=== PATIENT | female | born 1975 | race Caucasian/White ===

== ENCOUNTER 2017-01-27 11:40 | Inpatient (IN) ==
--- NOTE | 2017-01-26 22:03 | Discharge Summary ---
<Nancie Chen - Last Filed: 01/27/17 11:44> Date of Encounter: 01/27/17 - Discharge Diagnosis (1) Arthritis of knee, left Priority: Primary Status: Acute (2) Status post total knee replacement, left Priority: Primary Status: Acute (3) DMII (diabetes mellitus, type 2) Priority: Secondary Status: Chronic Qualifiers: Diabetes mellitus complication status: without complication Diabetes mellitus middle or intermediate school principal insulin use: unspecified middle or intermediate school principal insulin use status Qualified Code(s): E11.9 - Type 2 diabetes mellitus without complications (4) HTN (hypertension) Priority: Secondary Status: Chronic Qualifiers: Hypertension type: essential hypertension Qualified Code(s): I10 - Essential (primary) hypertension (5) Obesity Priority: Secondary Status: Acute Qualifiers: Obesity type: due to excess calories Obesity classification: unspecified obesity classification Serious obesity comorbidity presence: unspecified whether serious comorbidity present Qualified Code(s): E66.09 - Other obesity due to excess calories; Z68.36 - Body mass index (BMI) 36.0-36.9, adult; Z68.36 - Body mass index (BMI) 36.0-36.9, adult - Discharge Medications Home Medications: Aspirin Enteric Coated [Aspirin EC] 325 mg PO DAILY #21 tablet.dr 01/26/17 [Rx] OxyCODONE Immed Rel [Roxicodone 5 MG] 5 mg PO Q6HR PRN #28 tablet 01/26/17 [Rx] Cholecalciferol (Vitamin D3) [Vitamin D3] 1,000 unit PO DAILY 01/27/17 [History] LORazepam [Ativan] 0.5 mg PO QID PRN 01/27/17 [History] Levothyroxine [Synthroid] 88 mcg PO 0630 01/27/17 [History] Lisinopril [Zestril] 5 mg PO DAILY 01/27/17 [History] Magnesium Oxide [Magnesium] 250 mg PO DAILY 01/27/17 [History] Metformin HCl [Glucophage] 1,000 mg PO BID 01/27/17 [History] Mv-Mn/FA/Vit K/Lycop/Lut/Coq10 [Daily Multivitamin Capsule] 1 tab PO DAILY 01/27 [History] Venlafaxine XR (24 HR) [Effexor Xr] 37.5 mg PO DAILY 01/27/17 [History] Allergies/Adverse Reactions: 3 Allergy/AdvReac Type Severity Reaction Status Date / Time cetirizine [From Zyrtec] AdvReac Swelling Verified 01/27/17 11:55 of Lip/Tongue/Throat ciprofloxacin [From Cipro] AdvReac Hives Verified 01/27/17 11:55 clindamycin AdvReac Redness of Verified 01/27/17 11:55 Skin ibuprofen AdvReac Hives Verified 01/27/17 11:55 iodine AdvReac Redness of Verified 01/27/17 11:55 Skin nifedipine [From Procardia] AdvReac Palpitation Verified 01/27/17 11:55 s Penicillins AdvReac Hives Verified 01/27/17 11:55 Primary care physician: PCP NONE - Patient Status Disposition: Home, Self-Care Condition: Good - Discharge Instructions Follow Up With: NONE,PCP [Primary Care Provider] - - Hospital Course Hospital course: Ms. Amaya is a 41 year old female - Time Spent with Patient Total time spent providing and/or coordinating discharge services: <Aurelio Garcia - Last Filed: 01/28/17 06:52> Date of Encounter: 01/28/17 Time of Encounter: 06:51 - Discharge Diagnosis (1) Arthritis of knee, left Priority: Primary Status: Chronic (2) Status post total knee replacement, left Priority: Primary Status: Acute (3) DMII (diabetes mellitus, type 2) Priority: Secondary Status: Chronic Qualifiers: Diabetes mellitus complication status: without complication Diabetes mellitus middle or intermediate school principal insulin use: unspecified middle or intermediate school principal insulin use status Qualified Code(s): E11.9 - Type 2 diabetes mellitus without complications (4) HTN (hypertension) Priority: Secondary Status: Chronic Qualifiers: Hypertension type: essential hypertension Qualified Code(s): I10 - Essential (primary) hypertension (5) Obesity Priority: Secondary Status: Acute Qualifiers: Obesity type: due to excess calories Obesity classification: adult class 2 (BMI 35 - 39.9) Serious obesity comorbidity presence: unspecified whether serious comorbidity present Body mass index: BMI 36.0-36.9 Qualified Code(s) : E66.09 - Other obesity due to excess calories; Z68.36 - Body mass index (BMI) 36.0-36.9, adult; Z68.36 - Body mass index (BMI) 36.0-36.9, adult Primary care physician: PCP NONE - Patient Status Functional capacity at discharge: uses cane/walker Overall status at discharge: patient is progressing back to baseline - Hospital Course Hospital course: Ms. Amaya is a 41 year old female Status post left total knee replacement The patient had an uneventful postoperative course. They received antibiotics and physical therapy and were discharged in stable condition. There will follow -up in the office in 2 weeks. - Time Spent with Patient Total time spent providing and/or coordinating discharge services:
--- NOTE | 2017-01-27 12:01 | Anesthesia Evaluation PreOp ---
Date of Encounter: 01/27/17 Time of Encounter: 11:56 - Past History Planned Operation: Left Robotic TKR Cardiac History: HTN Pulmonary History: Denies Any Significant HX CAR CUSTOMIZER History: Denies Any Significant HX Other Medical History: Diabetes Type II, Thyroid (Hypothyroid), Other ( Polycystic Ovarian Syndrome) Anesthesia History: No Prior Anesthetic Complications, Past Anesthesia (Knee scope x 3, bunionectomy, JUHI, panectomy) : Yes Test: Negative (01/22/2017) Alcohol Use: unknown Medications and Allergies Aspirin Enteric Coated [Aspirin EC] 325 mg PO DAILY #21 tablet.dr 01/26/17 [Rx] OxyCODONE Immed Rel [Roxicodone 5 MG] 5 mg PO Q6HR PRN #28 tablet 01/26/17 [Rx] Cholecalciferol (Vitamin D3) [Vitamin D3] 1,000 unit PO DAILY 01/27/17 [History] LORazepam [Ativan] 0.5 mg PO QID PRN 01/27/17 [History] Levothyroxine [Synthroid] 88 mcg PO 0630 01/27/17 [History] Lisinopril [Zestril] 5 mg PO DAILY 01/27/17 [History] Magnesium Oxide [Magnesium] 250 mg PO DAILY 01/27/17 [History] Metformin HCl [Glucophage] 1,000 mg PO BID 01/27/17 [History] Mv-Mn/FA/Vit K/Lycop/Lut/Coq10 [Daily Multivitamin Capsule] 1 tab PO DAILY 01/27 [History] Venlafaxine XR (24 HR) [Effexor Xr] 37.5 mg PO DAILY 01/27/17 [History] 3 Allergy/AdvReac Type Severity Reaction Status Date / Time cetirizine [From Zyrtec] AdvReac Swelling Verified 01/27/17 11:55 of Lip/Tongue/Throat ciprofloxacin [From Cipro] AdvReac Hives Verified 01/27/17 11:55 clindamycin AdvReac Redness of Verified 01/27/17 11:55 Skin ibuprofen AdvReac Hives Verified 01/27/17 11:55 iodine AdvReac Redness of Verified 01/27/17 11:55 Skin nifedipine [From Procardia] AdvReac Palpitation Verified 01/27/17 11:55 s Penicillins AdvReac Hives Verified 01/27/17 11:55 - Meds/Allergy Pre-op Review Medications Reviewed: Yes Allergies Reviewed: Yes Beta Blockers on Current Med List: No Anesthesia Results - Labs Laboratory Tests 01/22/17 01/22/17 01/22/17 16:36 16:36 16:36 WBC 8.3 Hgb 14.4 Hct 44.4 Plt Count 341 INR 1.0 Sodium Potassium 4.3 Chloride 102 Carbon Dioxide 27 BUN 14 Creatinine 0.75 Hemoglobin A1c Serum , Qual 01/22/17 01/22/17 01/22/17 16:36 16:36 16:36 WBC Hgb Hct Plt Count INR Sodium 137 Potassium Chloride Carbon Dioxide BUN Creatinine Hemoglobin A1c 5.4 Serum , Qual Negative - Imaging EKG: image reviewed (SR) Anesthesia Exam O2 Sat Height 1.7 m Height 1.7 m Weight 104.326 kg Weight 104.326 kg O2 Sat by Pulse Oximetry 97 Vital Signs Temp Pulse Resp BP Pulse Ox 98.7 F 91 18 123/89 97 01/27/17 12:03 01/27/17 12:03 01/27/17 12:03 01/27/17 12:03 01/27/17 12:03 Blood glucose: 107 Height: 5'7'' Weight: 230# NPO (# of Hours): > 8 hrs Pain Scale: 0 Pain Scale Used: Numeric (1 - 10) - HEENT Pupil (Motor): Pupils equal, EOMI Mallampati: I Teeth: Normal Oral Opening: Greater than 3 - CAR CUSTOMIZER LOC: Oriented CAR CUSTOMIZER Motor: Normal RUE, Normal LUE, Normal RLE, Normal LLE, Normal Face CAR CUSTOMIZER Sensory: Normal: RUE, LUE, RLE, LLE, Face - Cardiac Rhythm: Regular Murmur: None JVD: No Carotid Bruit: No - Pulmonary Breath Sounds: bilateral Clear Respiratory Effort: Symmetrical Anesthesia Assess/Plan ASA Score: 3 Modified [place] Scale for Level of Consciousness: Cooperative, oriented, and tranquil Anesthetic Plan: General, Regional (Left Fem. Nerve Block) Autologous Blood: Yes Monitoring Plan: Standard Monitors Recovery Plan: PACU
--- NOTE | 2017-01-27 12:14 | History & Physical Report ---
Date of Encounter: 01/27/17 Time of Encounter: 12:14 24 Hour HP Update - Instructions Instructions: If the History and Physical is less than 30 days old and was completed prior to A.M. admission and or procedure and has NOT been updated on calendar day of procedure please complete this update prior to performing procedure. - Update Patient reports changes in Medical Condition: No Changes in examination, assessment, or condition: No Changes in Medication: No Preop tests/diagnostics Reviewed: Yes Surgery Remains Indicated: Yes Consent for Planned Operative Procedure(s) Verified: Yes - Pre-Operative Checklist Preoperative Checklist Indicated: No Prophylactic Antibiotic Ordered: Yes Is VTE Prophylaxis Indicated?: Yes
[2017-01-27] MEDS ORDERED: Vancomycin 1,500 MG in D5% in Water 250 ML IVPB ONE (12:17)
[2017-01-27] MEDS ORDERED: Plasma-Lyte A (PH 7.4) 1,000 ML IVC SCH (12:30)
[2017-01-27] MEDS ORDERED: Ondansetron 4 MG/2 ML VIAL ONE (12:33)
[2017-01-27] MEDS ORDERED: *HR* FentaNYL (PF) 100 MCG/2 ML VIAL ONE (12:33)
[2017-01-27] MEDS ORDERED: *HR* Midazolam HCl 2 MG/2 ML VIAL ONE (12:33)
[2017-01-27] MEDS ORDERED: *HR* Propofol 200 MG/20 ML VIAL IVP ONE (12:33)
[2017-01-27] MEDS ORDERED: Lidocaine -MPF 2% 2 ML VIAL ONE (12:33)
[2017-01-27] MEDS ORDERED: *HR* Succinylcholine 200 MG/10 ML VIAL IVP ONE (12:33)
[2017-01-27] MEDS ORDERED: Lidocaine -MPF 4% 5 ML AMPUL ONE (12:43)
[2017-01-27] MEDS ORDERED: *HR* Promethazine 25 MG/ML VIAL IVP PRN (13:19)
[2017-01-27] MEDS ORDERED: *HR* Meperidine 25 MG/ML SYRINGE IVP PRN (13:19)
[2017-01-27] MEDS ORDERED: ROPIVACAINE HCL/PF 0.5% 30 ML VIAL ONE (13:26)
[2017-01-27] MEDS ORDERED: Bupivacaine/Clonidine Syringe 1 EACH SYRINGE ONE (13:26)
--- NOTE | 2017-01-27 13:42 | Anesthesia Procedures ---
Date of Encounter: 01/27/17 Time of Encounter: 13:40 Procedures: Anesthesia - Nerve Block Procedure Date: 01/27/17 Time: 13:40 Pre-op Diagnosis: OA L knee Surgical Procedure: L total Knee Checklist: Correct Patient Identifier Correct side: Left Blood Thinner: No Monitor Applied: EKG, BP, Pulse Oximetry Supplemental Oxygen via Nasal Cannula (L/min): 3 Sedation: Versed (mg): 2 Sedation: Fentanyl (mcg): 100 Indication: Post Op Analgesia Pre-op Neuro Deficits: No Block Type: Femoral, Other (IPACK) Catheter placed: No Sterile Technique: Yes Ultrasound used: Yes Anatomy identified: Yes Visual spread of Local: Yes Neuro Stimulation: Yes (fem) Nerve Stimulator Range: 0.2 - 0.4 mA Blood on Needle Aspiration: No Smooth Injection of Local: Yes Pain with Injection of Local: No Prep: Chlorhexadine Needle: 22 x 50 mm Stimuplex, 21 x 100 mm Stimuplex Local: 0.25% Bupivicaine w/Clonidine 20 mcg/cc, Ropivacaine Volume (cc): 20+30 Number of Attempts: 1 Complications: None/effective block Vitals: Vital Signs/O2 Sat, Most Current Temp Pulse Resp BP Pulse Ox 98.7 F 85 16 129/83 99 01/27/17 12:03 01/27/17 13:23 01/27/17 13:23 01/27/17 13:23 01/27/17 13:23 Comments: aseptic, tolerated well, VSS
[2017-01-27] MEDS ORDERED: Ethanol\\Acetic Acid\\Na Ace\\Ben 1,000 ML IRRIG.SOLN IR ONE (13:47)
[2017-01-27] MEDS ORDERED: EPHEDrine 50 MG/ML VIAL ONE (14:28)
[2017-01-27] MEDS ORDERED: Acetaminophen IV 1,000 MG/100 ML INFUS..BTL ONE (15:12)
--- NOTE | 2017-01-27 15:20 | Orthopedic Operative Note ---
Date of procedure: 01/27/17 Pre-op diagnosis: Left knee arthritis Post-op diagnosis: same Procedure: Procedure left: robotic-assisted Total knee replacement Estimated blood loss: 400 cc Hardware: Metal and polyethylene replacement. [place] Femur: 2 Tibia: 2 PS insert: 13 Patella: 33 Exam Under anesthesia: Hyper extension 4 degrees 6 degrees valgus as calculated by the robot full flexion and no instability Procedural Notes: grade 4 for arthritic changes all 3 compartments. Operative procedure: The patient was brought to the operating room and placed on the operating room table. After general anesthesia was administered the operative knee was examined. Findings were noted in the exam under anesthesia. The operative extremity was prepped and draped in sterile surgical fashion. The patient received IV antibiotics prior to skin incision. A standard midline incision was made centered over the patella. The incision was made through the skin and subcutaneous tissue. A medial parapatellar tendon approach was performed. Care was taken to preserve tissue along the medial aspect of the patella. And to protect the patella tendon. The deep MCL was released off the medial tibia. The infra patella fat pad was excised. The patella was everted and cut was made at the level of the insertion of the quadriceps and patella tendon. The patella was sized to a 33 the guide was seated and the lug holes are drilled. Knee was brought into flexion. Patient noted to have grade 4 arthritic changes all 3 components. Steinmann pins were placed in the tibia and the femur for the tibial and femoral arrays respectively. Checkpoints were also placed in the tibia and the femur for calculation purposes. The knee including the femur and the tibial registered. Osteophytes, ACL and PCL were excised at this point. Extension was to hyper extension 4 degrees and varus and valgus stresses were assessed, 90 degrees of flexion varus and valgus stresses were assessed and components were adjusted on the computer for the robotic cut positions. Femoral cuts were made first with robotic assistance, these included the anterior cut posterior cuts chamfer cuts. Tibial cut was then performed with robotic assistance as well. Bone fragments were removed, as well as the medial and lateral meniscus. The size 2 femoral guide was seated box cut was made lug holes are drilled. The size 2tibial tray was seated and prepared with the fin cutter. Trial reduction with the 13 PS Barbara revealed extension of 0 degree and full flexion. No varus valgus instability. Valgus alignment of 2 degrees Trial reduction revealed excellent patella tracking. All trial components were removed all bony surfaces were irrigated. Tibias press-fit followed by the femur the 13 PS Barbara was seated and patella was press fit and secured. Patient had similar findings for motion and stability. The knee was closed by the PA. The knee was then irrigated out with 2 L of pulse irrigation. The extensor mechanism was closed with #2 FiberWire suture and #2 PDS suture. The subcutaneous tissue was then irrigated and closed deep with #1 PDS suture superficially with 0 PDS suture and skin was closed with zip tie The patient was then placed in a sterile dressing and a postoperative brace extubated and transferred to recovery room in stable condition. Anesthesia: LUZ MARINA Surgeon: Aurelio Garcia Chief Executive: Iva Coles Condition: stable Disposition: PACU
[2017-01-27] MEDS: *HR* HYDROmorphone (PF) 1 MG/ML SYRINGE IVP PRN ×2 (16:12→16:40)
[2017-01-27] MEDS ORDERED: *HR* LORazepam 2 MG/ML VIAL IVP ONE (16:27)
[2017-01-27] MEDS ORDERED: *HR* LORazepam 2 MG/ML VIAL ONE (16:30)
[2017-01-27 16:35] LABS: Hematocrit 37.9 % (35.3-44.9)
[2017-01-27 16:39] LABS: Hemoglobin 12.6 g/dL (11.5-15.4)
--- NOTE | 2017-01-27 16:59 | Anesthesia Evaluation Post Op ---
Date of Encounter: 01/27/17 Time of Encounter: 16:58 - Vital Signs Vital Signs: Selected Entries 01/27/17 16:25 01/27/17 16:45 Temperature 98.6 F Pulse Rate 106 Respiratory Rate 14 Blood Pressure 124/76 O2 Sat by Pulse Oximetry 99 - Lungs Lungs: Clear Ascult./Percussion - Airway Airway: Non-obstructed - Cardiovascular Regular Rate - Mental Status Mental Status: Alert & Oriented, Answers Appropriately - Pain Pain Scale: 7 Pain Scale used: Numeric (1 - 10) - Nausea Vomiting Nausea Vomiting: Not Present - Hydration Hydration: Tolerates oral liquids, Has not voided - Discharge PostOp Status: Transfer Patient to floor
[2017-01-27] MEDS ORDERED: *HR* HYDROmorphone (PF) 1 MG/ML SYRINGE IVP PRN (17:21)
[2017-01-27] MEDS ORDERED: *HR* Dextrose 50 % in Water (Syg) 50 ML SYRINGE IVP PRN (17:21)
[2017-01-27] MEDS ORDERED: *HR* OxyCODONE Immed Rel 5 MG TABLET PO PRN (17:21)
[2017-01-27] MEDS ORDERED: Naloxone 0.4 MG/ML INJ IVP PRN (17:21)
[2017-01-27] MEDS ORDERED: Ringers Solution, Lactated 1,000 ML IVC SCH (17:21)
[2017-01-27] MEDS ORDERED: *HR* LORazepam 0.5 MG TABLET PO PRN (17:21)
[2017-01-27] MEDS ORDERED: Sennosides 8.6 MG TABLET PO PRN (17:21)
[2017-01-27] MEDS ORDERED: D5% in Water 1,000 ML IVC PRN (17:21)
[2017-01-27] MEDS ORDERED: Temazepam 15 MG CAPSULE PO PRN (17:21)
[2017-01-27] MEDS ORDERED: CeFAZolin Premix DUPLEX 2,000 MG/50 ML BAG IVPB SCH (17:21)
[2017-01-27] MEDS ORDERED: Dextrose Gel 15 GM PO PRN ×2 (17:21)
[2017-01-27] MEDS ORDERED: MOM Conc 10 ML UD.LIQ PO PRN (17:21)
[2017-01-27] MEDS: Insulin LISPRO 300 UNITS/3 ML VIAL SQ SCH (17:35)
[2017-01-27] MEDS: Ondansetron 4 MG/2 ML VIAL IVP PRN (17:39)
[2017-01-27] MEDS ORDERED: *HR* Enoxaparin 30 MG/0.3 ML SYRINGE SQ SCH (18:00)
[2017-01-27] MEDS: *HR* Enoxaparin 30 MG/0.3 ML SYRINGE SQ SCH (19:31)
[2017-01-27] MEDS ORDERED: Insulin LISPRO 300 UNITS/3 ML VIAL SQ SCH (21:00)
[2017-01-27] MEDS: *HR* Metformin 500 MG TABLET PO SCH (21:33)
[2017-01-27 21:40] LABS: Hematocrit 37.9 % (35.3-44.9); Hemoglobin 12.5 g/dL (11.5-15.4)
[2017-01-27] MEDS: *HR* OxyCODONE Immed Rel 5 MG TABLET PO PRN (22:27)
[2017-01-27] MEDS: *HR* LORazepam 2 MG/ML VIAL IVP PRN (22:27)
[2017-01-28] MEDS: Ondansetron 4 MG/2 ML VIAL IVP PRN ×3 (00:35→13:37)
[2017-01-28] MEDS ORDERED: Vancomycin 1,500 MG in D5% in Water 250 ML IVPB ONE (02:00)
[2017-01-28 04:22] LABS: Hematocrit 36.1 % (35.3-44.9); Hemoglobin 11.5 g/dL (11.5-15.4)
[2017-01-28 04:25] LABS: BUN/Creatinine Ratio 11 (6-26); Blood Urea Nitrogen 8 mg/dL (7-20); Calcium 8.7 mg/dL (8.6-10.8); Carbon Dioxide 24 mEq/L (19-29); Chloride 102 mEq/L (98-109); Glucose 238 mg/dL (70-99); Osmolality,Calculated 284 (280-300); Potassium 4.4 mEq/L (3.5-4.5); Sodium 134 mEq/L (136-145); eGFR For African Americans > 60 (> 60); eGFR For Non-African Americans > 60 (> 60)
[2017-01-28] MEDS: *HR* Enoxaparin 30 MG/0.3 ML SYRINGE SQ SCH (05:36)
[2017-01-28] MEDS: *HR* OxyCODONE Immed Rel 5 MG TABLET PO PRN ×2 (06:00→12:00)
--- NOTE | 2017-01-28 06:53 | Orthopedics Progress Note ---
Date of Encounter: 01/28/17 Time of Encounter: 06:52 - Assessment and Plan (1) Arthritis of knee, left Current Visit: No Status: Chronic (2) Status post total knee replacement, left Current Visit: No Status: Acute (3) DMII (diabetes mellitus, type 2) Current Visit: Yes Status: Chronic Qualifiers: Diabetes mellitus complication status: without complication Diabetes mellitus penitentiary insulin use: unspecified penitentiary insulin use status Qualified Code(s): E11.9 - Type 2 diabetes mellitus without complications (4) HTN (hypertension) Current Visit: Yes Status: Chronic Qualifiers: Hypertension type: essential hypertension Qualified Code(s): I10 - Essential (primary) hypertension (5) Obesity Current Visit: Yes Status: Acute Qualifiers: Obesity type: due to excess calories Obesity classification: adult class 2 (BMI 35 - 39.9) Serious obesity comorbidity presence: unspecified whether serious comorbidity present Body mass index: BMI 36.0-36.9 Qualified Code(s) : E66.09 - Other obesity due to excess calories; Z68.36 - Body mass index (BMI) 36.0-36.9, adult; Z68.36 - Body mass index (BMI) 36.0-36.9, adult Subjective Interval history: Patient was seen this morning doing well without complaints. Afebrile vital signs stable. Operative extremity: Neurovascularly intact Dressing clean dry and intact Calves nontender Assessment and plan: Continue with postoperative care Hematocrit 36 discharged today Objective Vital signs: Vital Signs Temp Pulse Resp BP Pulse Ox 01/28/17 06:48 98.6 F 107 18 123/82 97 01/28/17 03:42 98.1 F 109 18 121/86 99 01/28/17 00:53 98.0 F 110 18 113/83 97 01/27/17 21:11 98.3 F 108 18 113/82 100 01/27/17 19:20 98.1 F 107 16 108/71 100 01/27/17 18:39 97.8 F 118 17 111/69 100 01/27/17 17:43 97.5 F L 109 14 99/69 99 01/27/17 17:15 97.8 F 109 16 123/79 100 01/27/17 16:55 98.9 F 103 14 123/79 98 01/27/17 16:45 106 14 124/76 99 01/27/17 16:35 103 16 124/75 95 01/27/17 16:25 98.6 F 118 14 119/75 96 01/27/17 16:15 102 13 95/52 95 01/27/17 16:05 110 14 101/56 96 01/27/17 15:55 98.6 F 94 14 97/63 97 01/27/17 13:53 93 16 136/89 91 01/27/17 13:43 95 16 134/94 99 01/27/17 13:23 85 16 129/83 99 01/27/17 12:03 98.7 F 91 18 123/89 97 Intake and Output 01/27/17 01/27/17 01/28/17 15:59 23:59 07:59 Intake Total 100 / 100 Output Total 400 / 400 0 / 0 200 / 200 Balance -400 / -400 100 / 100 -200 / -200 Intake: Oral 100 / 100 Output: Urine 0 / 0 Emesis 200 / 200 Estimated Blood Loss 400 / 400 Other: # Voids 1 1 Weight 104.326 kg Blood Glucose* 147 216 - Labs CBC & BMP: 01/28/17 03:34 01/28/17 03:34 Labs: Abnormal lab results Sodium 134 mEq/L (136-145) L 01/28/17 03:34 Glucose 238 mg/dL (70-99) H 01/28/17 03:34 POC Glucose 107 (58-89) H 01/27/17 12:01 - VTE Documentation of Mechanical Device: Venous foot pump, device Consult Discharge Plan - Plan Referrals: NONE,PCP [Primary Care Provider] -
[2017-01-28] MEDS: *HR* LORazepam 2 MG/ML VIAL IVP PRN ×2 (06:59→13:45)
[2017-01-28] MEDS: Insulin LISPRO 300 UNITS/3 ML VIAL SQ SCH ×2 (08:17→12:00)
[2017-01-28] MEDS: *HR* Metformin 500 MG TABLET PO SCH (08:17)
[2017-01-28] MEDS ORDERED: Magnesium Oxide 400 MG TABLET PO SCH (09:00)
[2017-01-28] MEDS ORDERED: Cholecalciferol (D-3) 1,000 UNIT TABLET PO SCH (09:00)
[2017-01-28] MEDS ORDERED: Multivit/Ca/Min/Fe/FA 1 TAB TABLET PO SCH (09:00)
[2017-01-28] MEDS ORDERED: Venlafaxine XR (24 HR) 37.5 MG CAP.ER.24H PO SCH (09:00)
[2017-01-28 11:42] VITALS: BP 126/84
[2017-01-28] MEDS ORDERED: Water for inj. (sterile) 10 ML IV ONE (13:41)
== END 2017-01-28 15:14 | disposition home or self-care (01) | DRG 470 ==
LOC: SAMDAY 11:40 → 3NENU 17:23
PROVIDERS: ADMIT Orthopaedic Surgery; ATTEND Orthopaedic Surgery